=== PATIENT | female | born 1995 | race Two or more races ===

== ENCOUNTER 2018-01-14 11:47 | Emergency (ER) | payer OTHER ==
[2018-01-14 13:04] LABS: #Basophils 0.1 thou/uL (0.0-0.2); #Eosinphils 0.2 thou/uL (0.0-0.7); #Lymphocytes 1.5 thou/uL (1.20-3.40); #Monocytes 0.6 thou/uL (0.11-0.59); #Neutrophils 7.4 thou/uL (1.40-6.50); %Basophils 0.9 % (0.0-1.0); %Eosinophils 1.7 % (0.0-10.0); %Lymphocytes 15.8 % (21.0-51.0); %Monocytes 5.7 % (0.0-10.0); %Neutrophils 75.9 % (42.0-75.0); Hemoglobin 12.9 g/dL (12.0-16.0); Mean Corpuscular HGB CONC 35.2 g/dL (32.0-36.0); Mean Corpuscular Hemoglobin 29.2 pg (27.0-31.0); Platelet Count 274 thou/uL (130-400); RBC Distribution Width 12.1 % (11.5-14.5); Red Blood Cell (RBC) Count 4.41 mill/uL (4.20-5.40); White Blood Cell (WBC) Count 9.7 thou/uL (4.8-10.8)
[2018-01-14 13:09] LABS: Bilirubin Small (Negative); Blood, Urine Large (Negative); Clarity CLEAR (Clear); Glucose, Urine (Dipstick) Negative (Negative); Leukocyte Small (Negative); Nitrite Negative (Negative); Protein, Urine (Dipstick) Trace mg/dL (Neg-Trace); Specific Gravity, Urine 1.028 (1.002-1.036)
[2018-01-14 13:10] LABS: Pregnancy Test - Urine (BHCG) Negative (Negative); Pregu Control Background? CLEAR/WHITE (CLR/WHITE); Pregu Control Bar Appear? YES (CONTROL BAR); Specific Gravity 1.028 (1.002-1.036)
[2018-01-14 13:12] LABS: Bacteria/HPF None Seen HPF (None Seen); Hyaline Casts/LPF 0-3 HYALINE CAST LPF (0-3 Hyaline); RBC/HPF GREATER THAN 50-TNTC HPF (0-3); Squamous Epithelial 0-3 HPF (0-3); WBC/HPF 0-3 HPF (0-3)
[2018-01-14 13:17] LABS: ALT (SGPT) 7 U/L (8-55); AST (SGOT) 14 U/L (5-34); Albumin 4.4 g/dL (3.5-5.0); Alkaline Phosphatase 50 U/L (40-150); Anion Gap 13 mmol/L (10-20); BUN (Urea Nitrogen) 7 mg/dL (7.0-18.7); Bilirubin, Total 0.8 mg/dL (0.2-1.2); Calc. Creatinine Clearance 0 mL/min (70-130); Calcium 9.3 mg/dL (7.8-10.44); Carbon Dioxide 24 mmol/L (22-29); Chloride 105 mmol/L (98-107); Estimated GFR-MDRD Greater than 90; Globulin 3.2 g/dL (2.4-3.5); Glucose 86 mg/dL (70-105); Potassium 3.8 mmol/L (3.5-5.1); Protein, Total 7.6 g/dL (6.0-8.3); Sodium 138 mmol/L (136-145)
== END 2018-01-14 13:41 | disposition home or self-care (01) ==
LOC: ERS 11:47
DX: N94.6 Dysmenorrhea, unspecified (principal); J45.909 Unspecified asthma, uncomplicated; F41.9 Anxiety disorder, unspecified
CPT/HCPCS: 36415; 80053; 81003; 81015; 81025; 85025; 87086; 99284

== ENCOUNTER 2018-10-06 13:59 | Outpatient (CLI) | payer OTHER ==
--- NOTE | 2018-10-06 15:41 | RAD ---
RIGHT TOES THREE VIEWS: 10/06/18 INDICATION: Injury to the right toe. COMPARISON: None. FINDINGS: No displaced fracture is evident involving the visualized forefoot. No radiopaque foreign body is andrew dent. IMPRESSION: No acute osseous abnormality. POS: MESERET
== END 2018-10-06 14:00 | disposition home or self-care (01) ==
LOC: BICRAD 13:59
PROVIDERS: ATTEND Family Medicine
DX: S99.921A Unspecified injury of right foot, initial encounter (principal)

== ENCOUNTER 2018-11-14 01:25 | Day surgery (SDC) | payer OTHER ==
[2018-11-14 02:02] VITALS: BP 113/69; TEMP 98.7; BMI 27.8
--- NOTE | 2018-11-14 02:14 | PDOC.LDHP ---
Labor and Delivery H&P Chief complaint: other (Cramping in pelvis) HPI: Patient of Dr Garcia Time: 211 HPI: 22 yo at 32 weeks 6 days with lower cramping. No VB, no LOF, good fm. No MELLO, no dysuria or GI issues Review of Systems: complete ROS performed and as per HPI Current gestational age (weeks): 32 (6 days) Due date: 01/03/19 Grav: 3 Para: 1 OB History Details: x 1; Sab x 1 Current complications: none Abnormal US findings: No Current medications: pre- vitamins Previous surgical history: none Allergies/Adverse Reactions: Allergies Allergy/AdvReac Type Severity Reaction Status Date / Time No Known Allergies Allergy Verified 07/31/13 11:57 Social history: none - Physical Exam Vital signs reviewed and normal: yes (113/69 84 98.7) General: NAD Heart: RRR Lungs: CTAB Abdomen: gravid Extremeties: no edema FHT: category 1 Armorel contractions every: no CTX - Assessment Discomforts of Preg at 33 weeks 6 days. No HX or GI sxs. CX exam pending. - Plan Plan: observation in L&D (20 minute strip reactive. Reassurance given)
== END 2018-11-14 02:30 | disposition home or self-care (01) ==
LOC: L&D/OP 01:25
PROVIDERS: ATTEND Obstetrics & Gynecology
DX: O26.893 Other specified pregnancy related conditions, third trimester (principal); R10.10 Upper abdominal pain, unspecified; M54.9 Dorsalgia, unspecified; Z79.899 Other long term (current) drug therapy; Z3A.32 32 weeks gestation of pregnancy
CPT/HCPCS: 99282

== ENCOUNTER 2018-12-26 03:53 | Inpatient (IN) | payer OTHER ==
[2018-12-26] MEDS ORDERED: NS w/ Oxytocin 10 units 0 ML ONE (04:20)
[2018-12-26 04:27] VITALS: BMI 28.6
[2018-12-26 04:30] LABS: Hemoglobin 11.8 g/dL (12.0-16.0); Mean Corpuscular HGB CONC 34.7 g/dL (32.0-36.0); Mean Corpuscular Hemoglobin 27.3 pg (27.0-31.0); Mean Corpuscular Volume 78.6 fL (78.0-98.0); Mean Platelet Volume 10.3 fL (7.4-10.4); Platelet Count 192 thou/uL (130-400); RBC Distribution Width 13.5 % (11.5-14.5); Red Blood Cell (RBC) Count 4.34 mill/uL (4.20-5.40)
[2018-12-26] MEDS ORDERED: Ondansetron PF 4 MG/2 ML Vial IVP PRN ×2 (04:37→05:26)
[2018-12-26] MEDS ORDERED: Promethazine HCl 25 MG/ML VIAL IM PRN ×2 (04:37→05:26)
[2018-12-26] MEDS ORDERED: Butorphanol Tartrate 1 MG/ML VIAL SLOW IVP PRN (04:37)
[2018-12-26] MEDS ORDERED: Lactated Ringer's 1,000 ML IV SCH ×2 (04:37)
[2018-12-26] MEDS ORDERED: Lidocaine 1% (PF) 30 ML VIAL ONE (04:39)
[2018-12-26] MEDS ORDERED: NS w/ Oxytocin 10 units 500 ML IV SCH ×2 (04:45)
[2018-12-26] MEDS ORDERED: NS / Oxytocin 40 units/1000ml 1,000 ML IV SCH ×2 (04:45→05:30)
[2018-12-26] MEDS ORDERED: Lidocaine 1% (PF) 30 ML VIAL SC PRN (04:45)
[2018-12-26 05:20] LABS: HBSAg Index 0.33 S/CO (0-0.99); Hep B Surf Ag Non-Reactive S/CO (NonReactive); Syphilis Antibody Nonreactive (Nonreactive); Syphilis Antibody Index 0.04 S/CO (<1.00 Non-Reactive)
[2018-12-26] MEDS ORDERED: HYDROcodone/Acetaminophen 5/325 mg Tablet PO PRN (05:26)
[2018-12-26] MEDS ORDERED: Zolpidem Tartrate 5 MG TAB PO PRN (05:26)
[2018-12-26] MEDS ORDERED: Lanolin Ointment 7 GM TUBE TOP PRN (05:26)
[2018-12-26] MEDS ORDERED: Milk Of Magnesia 30 ML UDCUP PO PRN (05:26)
[2018-12-26] MEDS ORDERED: Bisacodyl 10 MG SUPP PR PRN (05:26)
[2018-12-26] MEDS ORDERED: Misoprostol 200 MCG TAB VAG PRN (05:26)
[2018-12-26] MEDS ORDERED: diphenhydrAMINE 25 MG CAP PO PRN (05:26)
[2018-12-26] MEDS ORDERED: Preparation H Ointment 28 GM TUBE PR PRN (05:26)
[2018-12-26] MEDS ORDERED: Benzocaine-Menthol 82.5 ML CAN TOP PRN (05:26)
[2018-12-26] MEDS: HYDROcodone/Acetaminophen 5/325 mg Tablet PO PRN ×2 (06:00→09:37)
[2018-12-26] MEDS ORDERED: Adacel (T-DAP) 0.5 ML SYRINGE IM ONE (09:00)
[2018-12-26] MEDS ORDERED: Varicella virus, LIVE 0.5 ML VIAL SC ONE (09:00)
[2018-12-26] MEDS ORDERED: Measles/Mumps/Rubella 10 MCG/0.5 ML VIAL SC ONE (09:00)
[2018-12-26] MEDS: Docusate Calcium (SURFAK) 240 MG CAP PO SCH ×2 (09:30→21:34)
[2018-12-26] MEDS: Ferrous Sulfate 325 MG TAB PO SCH ×2 (09:32→17:00)
[2018-12-26] MEDS: Ibuprofen 800 MG TAB PO SCH ×3 (12:20→21:34)
[2018-12-26] MEDS ORDERED: Simethicone Chewable 80 MG TAB PO PRN (21:43)
[2018-12-27] MEDS: Ibuprofen 800 MG TAB PO SCH ×2 (06:45→18:59)
[2018-12-27 07:06] LABS: Hemoglobin 10.4 g/dL (12.0-16.0); Mean Corpuscular HGB CONC 34.8 g/dL (32.0-36.0); Mean Corpuscular Hemoglobin 27.4 pg (27.0-31.0); Mean Corpuscular Volume 78.6 fL (78.0-98.0); Platelet Count 193 thou/uL (130-400); RBC Distribution Width 13.3 % (11.5-14.5); White Blood Cell (WBC) Count 12.4 thou/uL (4.8-10.8)
[2018-12-27] MEDS: Ferrous Sulfate 325 MG TAB PO SCH (11:08)
[2018-12-27] MEDS: Docusate Calcium (SURFAK) 240 MG CAP PO SCH (11:08)
--- NOTE | 2018-12-27 13:19 | PDOC.PP ---
Post Progress Note Post Day #: 1 PO intake tolerated: yes Flatus: yes Ambulation: yes Weight Weight 183 lb - Physical Examination General: NAD Cardiovascular: no m/r/g, RRR Respiratory: clear to auscultation bilaterally, non-labored breathing Abdominal: + bowel sounds, lochia, no distention Extremities: negative homans (B) Neurological: no gross focal deficits Psychiatric: A&Ox3, normal affect (DC home tomorrow requested.) Result Diagrams: 12/27/18 06:55 Additional Labs: Post Labs Blood Type A POSITIVE 12/26/18 04:22 Hep Bs Antigen Non-Reactive S/CO (NonReactive) 12/26/18 04:22
--- NOTE | 2018-12-27 13:24 | PDOC.LDHP ---
Labor and Delivery H&P HPI: 23 y/o at 38 and 6/7 wks, presents in labor. Current gestational age (weeks): 38 Due date: 01/03/19 Grav: 3 Para: 1 Current complications: none Abnormal US findings: No Current medications: pre- vitamins Previous surgical history: other Allergies/Adverse Reactions: Allergies Allergy/AdvReac Type Severity Reaction Status Date / Time No Known Allergies Allergy Verified 12/26/18 04:28 Social history: none - Physical Exam General: NAD, resting, breathing through contractions Heart: RRR Lungs: nonlabored breathing Abdomen: NTTP Extremeties: no edema FHT: category 1 - Vaginal Exam cm dilated: 8 - Assessment L&D Assessment: term patient in labor - Plan Plan: admit to L&D
[2018-12-28] MEDS: Ibuprofen 800 MG TAB PO SCH ×2 (03:44→05:56)
[2018-12-28] MEDS: Docusate Calcium (SURFAK) 240 MG CAP PO SCH ×2 (03:44→09:40)
[2018-12-28] MEDS: HYDROcodone/Acetaminophen 5/325 mg Tablet PO PRN (05:59)
[2018-12-28] MEDS: Ferrous Sulfate 325 MG TAB PO SCH (09:40)
[2018-12-28 13:20] VITALS: BP 108/67; TEMP 98.5
[2018-12-28] MEDS ORDERED: Adacel (T-DAP) 0.5 ML SYRINGE IM ONE (15:00)
== END 2018-12-28 14:15 | disposition home or self-care (01) | DRG 807 ==
LOC: EEVIPCON 03:53 → L&D/OP 03:53 → L&D 04:36
PROVIDERS: ADMIT Obstetrics & Gynecology; ATTEND Obstetrics & Gynecology
PROC: 10E0XZZ Delivery of Products of Conception, External Approach (ICD-10-PCS; principal; 2018-12-26)
DX: O70.0 First degree perineal laceration during delivery (principal); Z37.0 Single live birth; Z3A.38 38 weeks gestation of pregnancy
CPT/HCPCS: 36415; 85027; 86780; 86850; 86900; 86901; 87340; 90715; 99285; J2001; J2590

== ENCOUNTER 2019-01-21 21:51 | Emergency (ER) | payer OTHER ==
[2019-01-21] MEDS ORDERED: Ondansetron ODT 4 MG TAB ONE (22:53)
[2019-01-21] MEDS ORDERED: Ibuprofen 200 MG TAB ONE (22:53)
[2019-01-21 23:38] LABS: Bilirubin Negative (Negative); Blood, Urine Negative (Negative); Clarity Clear (Clear); Glucose, Urine (Dipstick) Normal (Negative); Leukocyte 75 Leu/uL (Negative); Nitrite Negative (Negative); Protein, Urine (Dipstick) Negative (Neg-Trace); RBC/HPF 0-3 HPF (0-3); Squamous Epithelial 0-3 HPF (0-3); Urobilinogen Normal mg/dL (Less than 2); WBC/HPF 0-3 HPF (0-3)
[2019-01-22 01:01] LABS: #Basophils 0.1 thou/uL (0.0-0.2); #Eosinphils 0.3 thou/uL (0.0-0.7); #Lymphocytes 1.8 thou/uL (1.20-3.40); #Monocytes 1.1 thou/uL (0.11-0.59); #Neutrophils 8.9 thou/uL (1.40-6.50); %Basophils 0.9 % (0.0-1.0); %Eosinophils 2.1 % (0.0-10.0); %Lymphocytes 15.2 % (21.0-51.0); %Monocytes 8.9 % (0.0-10.0); Hemoglobin 12.8 g/dL (12.0-16.0); Mean Corpuscular Hemoglobin 27.1 pg (27.0-31.0); Mean Corpuscular Volume 79.7 fL (78.0-98.0); Platelet Count 216 thou/uL (130-400); RBC Distribution Width 14.1 % (11.5-14.5); Red Blood Cell (RBC) Count 4.73 mill/uL (4.20-5.40); White Blood Cell (WBC) Count 12.1 thou/uL (4.8-10.8)
[2019-01-22 01:22] LABS: ALT (SGPT) 41 U/L (8-55); AST (SGOT) 97 U/L (5-34); Albumin 4.2 g/dL (3.5-5.0); Alkaline Phosphatase 96 U/L (40-150); Anion Gap 12 mmol/L (10-20); BUN (Urea Nitrogen) 7 mg/dL (7.0-18.7); Bilirubin, Total 0.9 mg/dL (0.2-1.2); Calc. Creatinine Clearance 0 mL/min (70-130); Calcium 9.7 mg/dL (7.8-10.44); Carbon Dioxide 29 mmol/L (22-29); Chloride 104 mmol/L (98-107); Estimated GFR-MDRD Greater than 90; Glucose 91 mg/dL (70-105); Lipase 66 U/L (8-78); Potassium 3.8 mmol/L (3.5-5.1); Protein, Total 7.2 g/dL (6.0-8.3); Sodium 141 mmol/L (136-145)
== END 2019-01-22 02:27 | disposition home or self-care (01) ==
LOC: ERS 21:51
DX: K29.70 Gastritis, unspecified, without bleeding (principal); F41.9 Anxiety disorder, unspecified
CPT/HCPCS: 36415; 80053; 81003; 81015; 83690; 85025; 99284; Q0162

== ENCOUNTER 2021-09-10 11:44 | Outpatient (CLI) | payer OTHER | END 2021-09-10 11:45 | disposition home or self-care (01) | LOC: BICRAD 11:44 | PROVIDERS: ATTEND Family Medicine | DX: M54.2 Cervicalgia (principal) | CPT/HCPCS: 72040 ==

== ENCOUNTER 2021-11-24 09:00 | Outpatient (CLI) | payer OTHER ==
[2021-11-24 09:51] LABS: #Basophils 0.1 10x3/uL (0.0-0.2); #Eosinphils 0.2 10x3/uL (0.0-0.5); #Monocytes 0.6 10x3/uL (0.0-1.1); #Neutrophils 4.9 10x3/uL (1.5-8.4); %Basophils 0.9 % (0.0-2.0); %Eosinophils 2.7 % (0.0-6.0); %Lymphocytes 28.8 % (18.0-47.0); %Neutrophils 60.4 % (40.0-75.0); Hemoglobin 12.7 g/dL (12.0-15.5); Mean Corpuscular HGB CONC 35.5 g/dL (32.0-36.0); Mean Corpuscular Hemoglobin 27.7 pg (27.0-33.0); Mean Platelet Volume 9.9 fl (7.4-10.4); Platelet Count 326 10x3/uL (150-450); RBC Distribution Width 13.5 % (11.5-14.5); Red Blood Cell (RBC) Count 4.59 10x6/uL (3.90-5.03); White Blood Cell (WBC) Count 8.1 10x3/uL (3.5-10.5)
[2021-11-24 10:31] LABS: BHCG - Serum Negative (NEGATIVE); Pregs Control Background? CLEAR/WHITE (CLR/WHITE); Pregs Control Bar Appear? YES (CONTROL BAR)
[2021-11-24 10:35] LABS: ALT (SGPT) 9 U/L (8-55); AST (SGOT) 17 U/L (5-34); Albumin 4.3 g/dL (3.5-5.0); Alkaline Phosphatase 46 U/L (40-110); Anion Gap 11 mmol/L (10-20); BUN (Urea Nitrogen) 13 mg/dL (7.0-18.7); Bilirubin, Total 0.4 mg/dL (0.2-1.2); Calc. Creatinine Clearance 0 mL/min (70-130); Calcium 9.1 mg/dL (7.8-10.44); Carbon Dioxide 27 mmol/L (22-29); Chloride 106 mmol/L (98-107); Globulin 2.8 g/dL (2.4-3.5); Glucose 85 mg/dL (70-105); Potassium 4.4 mmol/L (3.5-5.1); Protein, Total 7.1 g/dL (6.0-8.3); Sodium 140 mmol/L (136-145)
[2021-11-24 19:51] LABS: SARS-CoV-2 PCR by NAA Not Detected (NotDetected)
== END 2021-11-24 09:01 | disposition home or self-care (01) ==
LOC: LABBT 09:00
PROVIDERS: ATTEND Specialist
DX: Z01.812 Encounter for preprocedural laboratory examination (principal); K80.20 Calculus of gallbladder without cholecystitis without obstruction; Z20.822 Contact with and (suspected) exposure to COVID-19
CPT/HCPCS: 80053; 84703; 85025; U0003; U0005

== ENCOUNTER 2021-11-27 08:01 | Day surgery (SDC) | payer OTHER ==
[2021-11-25 11:33] VITALS: BMI 28.6
[2021-11-27] MEDS ORDERED: Ketorolac Tromethamine 30 MG/ML VIAL ONE (08:24)
[2021-11-27] MEDS ORDERED: Acetaminophen 500 MG TAB ONE (08:24)
[2021-11-27] MEDS ORDERED: Bupivacaine 0.25% 10 ML VIAL ONE (09:21)
[2021-11-27] MEDS ORDERED: Lidocaine 1% w/Epinephrine 1:100K 20 ML VIAL ONE (09:21)
[2021-11-27] MEDS ORDERED: Midazolam HCl 2 mg/2 ml Vial ONE (09:26)
[2021-11-27] MEDS ORDERED: Famotidine/PF 20 mg/2ml Vial ONE (09:30)
[2021-11-27] MEDS ORDERED: fentaNYL Citrate/PF 100 MCG/2 ML SYRINGE ONE (09:30)
[2021-11-27] MEDS ORDERED: HYDROmorphone 2 MG/ML VIAL ONE (09:30)
[2021-11-27] MEDS ORDERED: ceFAZolin (BATCH) 2 GM/100 ML BAG ONE (09:34)
[2021-11-27] MEDS ORDERED: Ondansetron PF 4 MG/2 ML Vial ONE (09:42)
[2021-11-27] MEDS ORDERED: Rocuronium Bromide 10 MG/ML (10ML VIAL) ONE (09:42)
[2021-11-27] MEDS ORDERED: Metoclopramide HCl 10 MG/2 ML VIAL ONE (09:42)
[2021-11-27] MEDS ORDERED: Lidocaine 1% PF 5 ML VIAL ONE (09:42)
[2021-11-27] MEDS ORDERED: PROPOFOL 200 MG/20 ML VIAL ONE (09:42)
[2021-11-27] MEDS ORDERED: Dexamethasone 20 MG/5 ML VIAL ONE (09:42)
[2021-11-27] MEDS ORDERED: Fentanyl 100 MCG/2 ML VIAL ONE (11:04)
[2021-11-27] MEDS ORDERED: Promethazine HCl 25 MG/ML VIAL ONE (11:04)
[2021-11-27] MEDS ORDERED: HYDROcodone/Acetaminophen 5/325 mg Tablet ONE (12:00)
== END 2021-11-27 12:20 | disposition home or self-care (01) ==
LOC: SDC 08:01
PROVIDERS: ATTEND Specialist
PROC: 0FT44ZZ Resection of Gallbladder, Percutaneous Endoscopic Approach (ICD-10-PCS; principal; 2021-11-27)
DX: K80.10 Calculus of gallbladder with chronic cholecystitis without obstruction (principal); K82.8 Other specified diseases of gallbladder
CPT/HCPCS: 88304; C1713; J0690; J1100; J1170; J1885; J2250; J2405; J2550; J2704; J2765; J3010; S0020; S0028

== ENCOUNTER 2023-10-16 02:48 | Emergency (ER) | payer MEDICARE ==
[2023-10-16] MEDS ORDERED: Ondansetron PF 4 MG/2 ML Vial ONE (03:26)
[2023-10-16 03:44] LABS: Bacteria/HPF None Seen HPF (None Seen); Bilirubin Negative (Negative); Blood, Urine Negative (Negative); CAUTI Indications for Culture Pelvic or flank pain; Clarity Clear (Clear); Glucose, Urine (Dipstick) Normal (Negative); Ketone, Urine Negative (Negative); Leukocyte Negative Leu/uL (Negative); Nitrite Negative (Negative); Protein, Urine (Dipstick) 10 mg/dL (Neg-Trace); Specific Gravity, Urine 1.026 (1.002-1.036); Squamous Epithelial 0-3 HPF (0-3); Urobilinogen Normal mg/dL (Less than 2); WBC/HPF None Seen HPF (0-3); pH, Urine 7.5 (5.0-9.0)
[2023-10-16 03:45] LABS: Urine Culture Reflex No No
[2023-10-16 03:47] LABS: #Basophils 0.09 10x3/uL (0.0-0.2); %Basophils 0.7 % (0.0-1.0); %Eosinophils 6.3 % (0.0-10.0); %Lymphocytes 20.9 % (21.0-51.0); %Monocytes 7.8 % (0.0-10.0); %Neutrophils 64.1 % (42.0-75.0); Hematocrit 34.2 % (36.0-47.0); Hemoglobin 12.3 g/dL (12.0-16.0); Mean Corpuscular Hemoglobin 28.5 pg (27.0-31.0); Mean Corpuscular Volume 79.4 fL (78.0-98.0); Mean Platelet Volume 9.7 fL (7.4-10.4); Platelet Count 254 10x3/uL (130-400); RBC Distribution Width 13.2 % (11.5-14.5); Red Blood Cell (RBC) Count 4.31 mill/uL (4.20-5.40)
[2023-10-16 04:01] LABS: BHCG - Serum Negative (NEGATIVE); Pregs Control Background? CLEAR/WHITE (CLR/WHITE); Pregs Control Bar Appear? YES (CONTROL BAR)
[2023-10-16 04:03] LABS: ALT (SGPT) 11 U/L (8-55); AST (SGOT) 16 U/L (5-34); Albumin 4.2 g/dL (3.5-5.0); Alkaline Phosphatase 45 U/L (40-110); Anion Gap 8 mmol/L (10-20); BUN (Urea Nitrogen) 9 mg/dL (7.0-18.7); Bilirubin, Total 0.3 mg/dL (0.2-1.2); Calc. Creatinine Clearance 0 mL/min (70-130); Calcium 9.3 mg/dL (7.8-10.44); Carbon Dioxide 28 mmol/L (22-29); Chloride 105 mmol/L (98-107); Estimated GFR 114; Glucose 88 mg/dL (70-105); Lipase 57 U/L (8-78); Potassium 3.5 mmol/L (3.5-5.1); Protein, Total 7.2 g/dL (6.0-8.3); Sodium 137 mmol/L (136-145)
[2023-10-16] MEDS ORDERED: Acetaminophen 500 MG TAB ONE (04:24)
[2023-10-16] MEDS ORDERED: Ketorolac Tromethamine 30 MG (1 mL) VIAL ONE (04:24)
== END 2023-10-16 04:53 | disposition home or self-care (01) ==
LOC: ERS 02:48
DX: R10.13 Epigastric pain (principal); J45.909 Unspecified asthma, uncomplicated; Z79.899 Other long term (current) drug therapy; Z55.6 Problems related to health literacy
CPT/HCPCS: 36415; 80053; 81001; 83690; 84703; 85025; 96374; 96375; J1885; J2405

== ENCOUNTER 2024-09-09 15:57 | Emergency (ER) | payer MEDICARE, SELFPAY ==
[2024-09-09] MEDS ORDERED: Ketorolac Tromethamine 30 MG (1 mL) VIAL ONE (17:23)
[2024-09-09] MEDS ORDERED: Acetaminophen 500 MG TAB ONE (17:23)
== END 2024-09-09 18:42 | disposition home or self-care (01) ==
LOC: ERS 15:57
DX: M67.471 Ganglion, right ankle and foot (principal)
CPT/HCPCS: 96372; 99283; J1885

== ENCOUNTER 2025-02-24 19:16 | Emergency (ER) | payer MEDICAID, MEDICARE, SELFPAY ==
[2025-02-24 20:43] LABS: Pregnancy Test - Urine (BHCG) POSITIVE (Negative); Pregu Control Background? CLEAR/WHITE (CLR/WHITE); Pregu Control Bar Appear? YES (CONTROL BAR)
[2025-02-24 20:45] LABS: Bacteria/HPF Rare-Few HPF (None Seen); CAUTI Indications for Culture Dysuria,urgency,freq; Glucose, Urine (Dipstick) Normal (Negative); Leukocyte 500 Leu/uL (Negative); Protein, Urine (Dipstick) 70 mg/dL (Neg-Trace); RBC/HPF Greater than 50 HPF (0-3); Specific Gravity, Urine 1.042 (1.002-1.036); WBC/HPF Greater than 50 HPF (0-3)
[2025-02-24 20:48] LABS: Urine Culture Reflex Yes Yes
[2025-02-24] MEDS ORDERED: Acetaminophen 500 MG TAB ONE (21:22)
== END 2025-02-24 21:23 | disposition home or self-care (01) ==
LOC: ERS 19:16
DX: O23.41 Unspecified infection of urinary tract in pregnancy, first trimester (principal); N39.0 Urinary tract infection, site not specified; Z3A.01 Less than 8 weeks gestation of pregnancy
CPT/HCPCS: 81001; 81025; 87077; 87086; 99283